=== PATIENT | female | born 1980 | race Two or more races ===

== ENCOUNTER → 2020-06-29 10:14 | Outpatient (CLI) | payer OTHER, SELFPAY ==
--- NOTE | ~2020-06-29 | MM_ITS ---
EXAMINATION: MM screening tee BI w valeri HISTORY: Screening mammogram TECHNIQUE: Craniocaudal and mediolateral oblique 3-D tomosynthesis images were obtained and synthetic 2-D images were generated. CAD analysis was submitted and interpreted. COMPARISON: 10/02/2015 BREAST PARENCHYMAL COMPOSITION: The breasts are heterogeneously dense, which may obscure small masses . FINDINGS: RIGHT BREAST: There is no evidence of suspicious mass, calcification, or architectural distortion to suggest malignancy. There has been no significant interval change. LEFT BREAST: There are possible masses in the central left breast. No suspicious architectural distor tion or calcification are identified. IMPRESSION: 1. Possible left breast masses. 2. Additional mammographic views and possible breast ultrasound are recommended. BI-RADS Category 0: Incomplete: Needs additional imaging evaluation. Reviewed, dictated and finalized at location A. E CLEANER IMPRESSION: 1. Possible left breast masses. 2. Additional mammographic views and possible breast ultrasound are recommended . BI-RADS Category 0: Incomplete: Needs additional imaging evaluation.
== END ==
PROVIDERS: Visit Provider Obstetrics & Gynecology Gynecology
DX: Z12.31 Encounter for screening mammogram for malignant neoplasm of breast (principal); R92.8 Other abnormal and inconclusive findings on diagnostic imaging of breast
CPT/HCPCS: 77063; 77067

== ENCOUNTER → 2023-03-21 09:56 | Outpatient (CLI) | payer OTHER, SELFPAY ==
--- NOTE | ~2023-03-21 | MM_ITS ---
EXAMINATION: MM screening [facility] BI w valeri HISTORY: Screening mammogram TECHNIQUE: Craniocaudal and mediolateral oblique 3-D tomosynthesis images were obtained and synthetic 2-D images were generated. CAD analysis was submitted and interpreted. COMPARISON: 06/29/2020, 10/02/2015 BREAST PARENCHYMAL COMPOSITION: The breasts are heterogeneously dense, which may obscure small masses . FINDINGS: RIGHT BREAST: There is a mass in the middle third of the upper-outer quadrant of the upper-outer quad rant of the breast 9 cm from the nipple. LEFT BREAST: No suspicious mass, calcification, or architectural distortion are identified to suggest malignancy. There has been no suspicious interval change. IMPRESSION: 1. Right breast mass. 2. Additional mammographic views and possible breast ultrasound are recommended. BI-RADS Category 0: Incomplete: Needs additional imaging evaluation. Reviewed, dictated and finalized at location A. IMPRESSION: 1. Right breast mass. 2. Additional mammographic views and possible breast ultrasound are recommended . BI-RADS Category 0: Incomplete: Needs additional imaging evaluation.
== END ==
PROVIDERS: PCP Obstetrics & Gynecology Gynecology; Visit Provider Obstetrics & Gynecology Gynecology
DX: Z12.31 Encounter for screening mammogram for malignant neoplasm of breast (principal); R92.8 Other abnormal and inconclusive findings on diagnostic imaging of breast
CPT/HCPCS: 77063; 77067

== ENCOUNTER → 2023-04-18 09:16 | Outpatient (CLI) | payer OTHER, SELFPAY ==
--- NOTE | ~2023-04-18 | MMUS_ITS ---
EXAMINATION: MM diagnostic tee RT w valeri, US breast RT limited HISTORY: Right breast mass in middle third of upper outer quadrant 9 cm from nipple reported on 2022 screening mammogram TECHNIQUE: Additional 3-D tomosynthesis images of the right breast were performed and synthetic 2-D i mages were generated. CAD analysis was submitted and interpreted. High resolution upper outer quadran t right breast ultrasound was performed. COMPARISON: 03/21/2023 bilateral screening mammogram FINDINGS: MAMMOGRAPHIC FINDINGS: Approximately 1.4 cm mass is confirmed in the mid to posterior aspect of the upper outer quadrant of the right breast. The margins are partially obscured by fibroglandular stroma. ULTRASOUND: 11:00 7 cm from nipple: There is an oval circumscribed hypoechoic 1.1 x 1.3 x 1.4 cm mass with some i nternal vascularity on color flow imaging and partial posterior shadowing. Ultrasound-guided biopsy i s recommended. There is a contiguous 3.7 mm sonolucent lesion with through transmission posterior enhancement, which appears cystic. IMPRESSION: 1. Partially shadowing circumscribed hypoechoic solid 1.4 cm mass at 11:00 7 cm from nipple 2. Ultrasound-guided biopsy of right breast 11:00 mass lesion is recommended BI-RADS category 4, suspicious findings. Dr. Peralta telephoned the report and ultrasound-guided biopsy recommendation on 04/18/2023 at 1025 hours to Triage Department voicemail at Dr. Mendez's office. Reviewed, dictated and finalized at location A. IMPRESSION: 1. Partially shadowing circumscribed hypoechoic solid 1.4 cm mass at 11:00 7 cm from nipple 2. Ultrasound-guided biopsy of right breast 11:00 mass lesion is recommended BI-RADS category 4, suspicious findings. Dr. Peralta telephoned the report and ultrasound-guided biopsy recommendation on at 1025 hours to Triage Department voicemail at Dr. Mendez's office.
== END ==
PROVIDERS: PCP Obstetrics & Gynecology Gynecology; Visit Provider Obstetrics & Gynecology Gynecology
DX: R92.8 Other abnormal and inconclusive findings on diagnostic imaging of breast (principal)
CPT/HCPCS: 76642; 77061; 77065; G0279